=== PATIENT | female | born 1985 | race Caucasian/White ===

== ENCOUNTER 2024-01-25 11:13 | Emergency (ER) | payer MEDICAID ==
[~2024-01-25] VITALS: Ht 154.9 cm; Wt 94.8 kg
[2024-01-25 11:28] VITALS: BP 131/91; PULSE 88; RESP 16; TEMP 98.7; O2SAT 98
[2024-01-25] MEDS: TETANUS, DIPHTHERIA, PERTUSSIS VAC/PF 0.5ML (>10YR OLD) IM ONE (12:12)
[2024-01-25] MEDS: BACITRACIN ZINC OINT UDPKT TOP ONE (12:12)
[2024-01-25] MEDS: LIDOCAINE HCL/PF 1% 10 MG/ML 5ML VIAL INFIL ONE (12:12)
[2024-01-25] MEDS ORDERED: BO1 TP (13:19)
[2024-01-25] MEDS ORDERED: ACET-2708 MT (13:19)
== END 2024-01-25 14:12 | disposition home or self-care (01) ==
LOC: ER 11:13
DX: S61.412A Laceration without foreign body of left hand, initial encounter (principal); X58.XXXA Exposure to other specified factors, initial encounter; Y93.89 Activity, other specified; Y92.89 Other specified places as the place of occurrence of the external cause; Y99.8 Other external cause status
CPT/HCPCS: 90715; 12001; 90471; 99283; J3490; Z7610 ×2

== ENCOUNTER 2024-02-05 16:06 | Emergency (ER) | payer MEDICAID ==
[~2024-02-05] VITALS: Ht 154.9 cm; Wt 120.0 kg
[~2024-02-05 16:06] MED LIST: ACET-2708 MT; BO1 TP
[2024-02-05 16:15] VITALS: O2SAT 100
[2024-02-05 16:26] VITALS: BP 138/82; PULSE 83; RESP 16; TEMP 98.3; O2SAT 98
== END 2024-02-05 21:29 | disposition left against medical advice (07) ==
LOC: ER 16:06
DX: R68.89 Other general symptoms and signs (principal); Z53.21 Procedure and treatment not carried out due to patient leaving prior to being seen by health care provider